=== PATIENT | female | born 1965 | race Caucasian/White ===

== ENCOUNTER 2016-03-06 13:51 | Emergency (ER) | payer MEDICAID, OTHER ==
[2016-03-06 14:49] LABS: Hematocrit 38.7 % (37.0-47.0); Mean Cell Volume 81.1 fl (78-100); Mean Corpuscular Hemoglobin 27.3 pg (27-31); Mean Corpuscular Hgb Conc 33.6 g/dl (32-36); Mean Platelet Volume 10.1 fl (6.0-9.5); Neutrophil # 11.4 K/mm3 (1.3-6.0); Neutrophil % 81.5 % (42-75.0); Platelet Count 320 K/mm3 (150-450); Red Blood Count 4.77 M/mm3 (4.2-5.4); Red Cell Distribution Width 12.6 % (11.5-14.0)
[2016-03-06 14:57] LABS: Anion Gap 15.2 mmol/L (6.8-13.8); Calcium * 9.4 mg/dL (7.9-10.9); Carbon Dioxide 26.7 mmol/L (24-32.6); Estimated Creat Clear 107.3; Potassium 3.9 mmol/L (3.4-4.6)
[2016-03-06] MEDS ORDERED: METHYLPREDNISOLONE SOD SUCC/PF 125 MG/2 ML VIAL IM ONE (17:25)
[2016-03-06] MEDS ORDERED: ALBUTEROL SULFATE 2.5 MG/0.5 ML VIAL.NEB IH ONE ×2 (17:25→17:33)
[2016-03-06] MEDS ORDERED: METHYLPREDNISOLONE SOD SUCC/PF 125 MG/2 ML VIAL ONE (17:33)
[2016-03-06] MEDS ORDERED: NORMAL SALINE 1,000 ML IV ONE (18:06)
--- NOTE | 2016-03-06 18:10 | ERNOTE ---
Medical Problem HPI - Narrative Date of Service: 03/06/16 - General Chief Complaint: Flu Symptoms Time Seen by Provider: 03/06/16 17:12 Source: patient Exam Limitations: no limitations - Immun/Allergies/Home Medications Immunizations: IMMUNIZATION HX Immunizations Up to Date Yes History of Influenza Vaccine No Hx Pneumococcal Vaccination No Allergies/Adverse Reactions: Allergies erythromycin lactobionate [From Erythrocin] Allergy (Verified 03/06/16 14:17) swelling Tetanus Vaccines & Toxoid [Tetanus] Allergy (Verified 03/06/16 14:17) fever swollen arm azithromycin [From Zithromax Z-Yair] Adverse Reaction (Mild, Verified 03/06/16 14 :17) Home Medications: HOME MEDICATIONS Albuterol Sulfate [Ventolin Hfa] 2 puff IH Q4H PRN #1 inhaler 12/16/14 [Last Taken Unknown] Albuterol Sulfate [Proventil Hfa] 6.7 gm IH Q4H PRN #1 hfa.aer.ad 05/14/15 [ Last Taken Unknown] Albuterol Sulfate [Ventolin Hfa] 2 puff IH Q4H PRN #1 inhaler 03/06/16 [Last Taken Unknown] Doxycycline Monohydrate 100 mg PO BID #20 tablet 03/06/16 [Last Taken Unknown] predniSONE [Prednisone] 3 tab PO DAILY #9 tab 03/06/16 [Last Taken Unknown] - History of Present History Narrative: Pt. comes in with c/o L side throat and ear pain with swelling for four days. Pt. denies any CP, NVD, diarrhea, palpitations or edema. Pt. does state that she has had fever, cough, sinus congestion, rhinorrhea, pain with swallowing, and increased SOB recently. Pt. states that she has not had her inhaler the past three days as her granddaughter lost it but she feels that she could use it if she had it. Review of Systems - Review of Systems Constitutional: Present: fever, chills, fatigue, malaise. Absent: recent illness, weakness EYE: Present: no symptoms reported ENT: Present: nose congestion, nasal drainage, sore throat, throat swelling. Absent: ear pain, nose pain Respiratory: Present: shortness of breath, cough, wheezing Cardiology: Present: no symptoms reported. Absent: chest pain, palpitations, edema Gastrointestinal/Abdominal: Present: no symptoms reported. Absent: nausea, vomiting, diarrhea, abdominal pain Genitourinary: Present: no symptoms reported Musculoskeletal: Present: no symptoms reported. Absent: back pain, joint pain Skin: Present: no symptoms reported. Absent: rash, change in color Neurological: Present: no symptoms reported. Absent: headache, dizziness/light- headedness, numbness, tingling All Other Systems: All systems neg except as marked - Patient's Past Medical History Patient History - Medical: No pertinent hx Patient History - Cardiac/Respiratory: Asthma Patient History - Cancer: No Hx of Cancer Patient History - Surgical Procedures: Tubal Ligation - Social History Living Situations: home Smoking Status: Current some day smoker Have you smoked in the past 12 months: Yes Drug Use: none Physical Exam - Physical Exam General Appearance: Present: wd/wn, alert, no apparent distress Eye Exam: Normal inspection: bilateral, PERRL: bilateral, EOMI: bilateral Ears, Nose, Throat: Present: abnormal TM (L) - erythema, pharyngeal erythema, pharyngeal swelling, tonsillar exudate. Absent: abnormal TM (R) Neck: Present: full range of motion, lymphadenopathy (L) - pre and post auricular, submandibular and ant cervical Respiratory: Present: no respiratory distress, no accessory muscle use, chest nontender, wheezing - BUL Cardiovascular/Chest: Present: regular rate, rhythm, no murmur, normal peripheral pulses Gastrointestinal/Abdominal: Present: normal bowel sounds, nontender, nondistended, soft, no organomegaly Back Exam: Present: normal inspection, normal range of motion, no CVA tenderness , no vertebral tenderness Extremity Exam: Present: normal inspection, non-tender, no edema, normal range of motion Neurological Exam: Present: alert, oriented, normal mood/affect, no motor/ sensory deficits, 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 blood pressure rebounding with IV fluids and pt. does not look septic at this time. Discussed case with Dr Contreras and she agrees that pt. should be ok for discharge home with quick follow up. - Results and Orders Patient's Lab Results:: I have reviewed the patient's lab results. - Vital Signs Patient's Vital Signs:: I have reviewed the patient's vital signs. Vital Signs: Vital Signs 03/06/16 03/06/16 03/06/16 14:12 16:46 17:38 Temperature 38.8 C H Pulse Rate 129 H 134 H Respiratory 16 16 Rate Blood Pressure 141/80 134/62 O2 Sat by Pulse 97 95 Oximetry 03/06/16 17:51 Temperature Pulse Rate 133 H Respiratory 15 Rate Blood Pressure 88/71 O2 Sat by Pulse 100 Oximetry - X-Ray X-Ray #1 X-Ray: chest Interpretation: Interp. by hi X-ray Comments: acute bronchitis - Progress/Reassessment Chief Complaint: Flu Symptoms Departure - Departure Clinical Impression: Bronchitis, Tonsillitis with exudate Pharyngitis Qualifiers: Pharyngitis/tonsillitis etiology: unspecified etiology Qualified Code(s): J02.9 - Acute pharyngitis, unspecified Disposition: Home self-care Condition: Fair Instructions: Pharyngitis, [id number], Acute Bronchitis, [id number] Additional Instructions: Please follow up with primary provider in 1-2 days. Referrals: Ysabel Rodriguez FNP [Primary Care Provider] - Prescriptions: Albuterol Sulfate [Ventolin Hfa] 2 puff IH Q4H PRN #1 inhaler PRN Reason: Shortness Of Breath Doxycycline Monohydrate 100 mg PO BID #20 tablet predniSONE [Prednisone] 3 tab PO DAILY #9 tab
[2016-03-06 18:25] LABS: Troponin I Less than 0.017 ng/ml (0.00-0.10)
[2016-03-06 18:29] LABS: BNP * 150 pg/mL (5-150)
[2016-03-06 19:18] VITALS: BP 115/59
[2016-03-06] MEDS ORDERED: LIDOCAINE HCL 20 ML UDC MM ONE (19:42)
== END 2016-03-06 19:45 | disposition home or self-care (01) ==
LOC: ER 13:51
DX: J40 Bronchitis, not specified as acute or chronic (principal); J03.90 Acute tonsillitis, unspecified; F17.210 Nicotine dependence, cigarettes, uncomplicated

== ENCOUNTER 2016-08-16 23:32 | Emergency (ER) | payer OTHER ==
[2016-08-17] MEDS ORDERED: hydrOXYzine PAMOATE 25 MG CAPSULE PO ONE (00:34)
[2016-08-17] MEDS ORDERED: hydrOXYzine PAMOATE 25 MG CAPSULE ONE (00:35)
[2016-08-17] MEDS ORDERED: CLINDAMYCIN HCL 150 MG CAPSULE PO ONE (00:35)
[2016-08-17] MEDS ORDERED: CLINDAMYCIN HCL 150 MG CAPSULE ONE (00:36)
--- NOTE | 2016-08-17 00:52 | ERNOTE ---
Integumentary HPI - General Presenting Symptoms: rash Time Seen by Provider: 08/17/16 00:21 Source: patient Exam Limitations: no limitations - Immun/Allergies/Home Medications Immunizations: IMMUNIZATION HX Immunizations Up to Date Yes History of Influenza Vaccine No Hx Pneumococcal Vaccination No Allergies/Adverse Reactions: Allergies Allergy/AdvReac Type Severity Reaction Status Date / Time erythromycin lactobionate Allergy Verified 08/16/16 23:55 [From Erythrocin] Tetanus Vaccines and Toxoid Allergy Verified 08/16/16 23:55 [Tetanus] Home Medications: HOME MEDICATIONS Fexofenadine HCl 180 mg PO DAILY 08/16/16 [Last Taken Unknown] Clindamycin HCl [Cleocin HCl] 300 mg PO QID #40 capsule 08/17/16 [Last Taken Unknown] Ivermectin [Stromectol] 21 mg PO ONCE #14 tablet 08/17/16 [Last Taken Unknown] hydrOXYzine PAMOATE [Vistaril] 1 - 2 cap PO Q6H PRN #30 cap 08/17/16 [Last Taken Unknown] - History of Present Illness Narrative: Patient is here for a rash that started about an hour prior to coming here. For few days she has been dealing with a few boils in her left arm pit, one started draining and as she was inspecting another one she started to notice a rash on both her arms, leg and neck. The rash looked like hives at first and has been itching, has improved a little on the way here. She denies using anything new recently, no new medications, soaps, lotions, or detergents, no unusual foods. She denies any other symptoms consistent with an allergic reaction. When asked about it she admits that they have had a lice problem at her house for a while. She has used multiple over the counter medications, has treated herself and the grandchildren but still has severe itching especially in her posterior scalp. Location: Reports: scalp, torso, upper extremity, lower extremity Quality: Reports: itching Exposure: Denies: no cause identified, insect bite/spider, bee/wasp sting, poison nicole/oak, medications-specify, foods- specify Modifying Factors - (Improves): Reports: nothing Modifying Factors - (Worsens): Reports: nothing Prior Treatment: Denies: recently seen, currently on antibiotics Review of Systems - Review of Systems Constitutional: Absent: recent illness, fever ENT: Absent: ear pain, nose congestion, sore throat, throat swelling Respiratory: Absent: shortness of breath, cough Cardiology: Absent: chest pain Gastrointestinal/Abdominal: Absent: nausea, vomiting, diarrhea, abdominal pain Genitourinary: Present: no symptoms reported Skin: Present: See HPI, rash Neurological: Absent: headache - Patient's Past Medical History Patient History - Medical: Anxiety, Depression Patient History - Cardiac/Respiratory: No pertinent hx Patient History - Cancer: No Hx of Cancer Patient History - Surgical Procedures: Tubal Ligation Patient History - Other: None - Social History Living Situations: home Psych History: Hx of Depression Smoking Status: Current every day smoker Drug Use: none - Immunizations Immunizations Up to Date: Yes Hx Pneumococcal Vaccination: No History of Influenza Vaccine: No Physical Exam - Physical Exam General Appearance: Present: wd/wn, alert, no apparent distress, obese Eye Exam: Normal inspection: bilateral Ears, Nose, Throat: Present: normal pharynx Neck: Present: other Respiratory: Present: no respiratory distress, normal breath sounds, no accessory muscle use, lungs clear Cardiovascular/Chest: Present: regular rate, rhythm, no murmur Extremity Exam: Present: other - left axilla three areas of induration about 0.5cm, one open and draining, no definite fluctuance in the other two Neurological Exam: Present: alert, oriented, normal mood/affect Skin Exam: Present: normal color, warm/dry, other - few lice in hair on posterior scalp, skin indurated and scaling (reaction to scratching?), om arms and legs: macularpapular rash, non confluent ED Progress - Vital Signs Patient's Vital Signs:: I have reviewed the patient's vital signs. Vital Signs: Vital Signs 08/16/16 23:51 Temperature 37.1 C Pulse Rate 86 Respiratory 20 Rate Blood Pressure 135/76 O2 Sat by Pulse 98 Oximetry - Progress/Reassessment Chief Complaint: Rash Departure Clinical Impression: Lice infested hair, Boil, axilla, Rash and nonspecific skin eruption - Departure Disposition: Home self-care Condition: Good Instructions: Lice, Adult, Cellulitis, Adult, [id number], Rash, [id number] Additional Instructions: call your doctor for follow up, if your symptoms don't clear up you might need to see a skin doctor Referrals: Candor,Ysabel, [employer] [[facility]] - Prescriptions: Clindamycin HCl [Cleocin HCl] 300 mg PO QID #40 capsule Ivermectin [Stromectol] 21 mg PO ONCE #14 tablet hydrOXYzine PAMOATE [Vistaril] 1 - 2 cap PO Q6H PRN #30 cap PRN Reason: Itching
[2016-08-17 04:06] VITALS: BP 132/82
== END 2016-08-17 00:50 | disposition home or self-care (01) ==
LOC: ER 23:32
DX: B85.4 Mixed pediculosis and phthiriasis (principal); L02.422 Furuncle of left axilla

== ENCOUNTER 2016-12-09 16:13 | Emergency (ER) | payer OTHER ==
[2016-12-09] MEDS ORDERED: ALBUTEROL SULFATE/IPRATROPIUM 3 ML NEBU IH ONE ×2 (16:30→16:43)
--- NOTE | 2016-12-09 16:44 | ERNOTE ---
Date of Service: 12/09/16 Time Seen by Provider: 12/09/16 16:25 Stated Complaint: FEVER, CONGESTION, SOB Presenting Symptoms:: cough, runny nose, fever Source: patient Exam Limitations: no limitations Immunizations: IMMUNIZATION HX Immunizations Up to Date Yes History of Influenza Vaccine No Hx Pneumococcal Vaccination No Allergies/Adverse Reactions: Allergies erythromycin lactobionate [From Erythrocin] Allergy (Verified 12/09/16 16:21) swelling Tetanus Vaccines and Toxoid [Tetanus] Allergy (Verified 12/09/16 16:21) fever swollen arm Home Medications: HOME MEDICATIONS Albuterol Sulfate [Ventolin Hfa] 2 puff IH QID PRN #1 hfa.aer.ad 12/09/16 [Last Taken Unknown] Albuterol Sulfate/Ipratropium [Duoneb 2.5-0.5MG/3ML Soln] 3 ml IH QID #150 vial 12/09/16 [Last Taken Unknown] Doxycycline Monohydrate 100 mg PO BID #20 tablet 12/09/16 [Last Taken Unknown] predniSONE [Prednisone] 3 tab PO DAILY #9 tab 12/09/16 [Last Taken Unknown] - History of Present Ilness Narrative: Pt. comes in with c/o cough, SOB, CP, fever, sinus pain and congestion and ear pain. Pt. denies any NVD, rhinorrhea or sputum. Pt. denies any alleviating or aggravating factors despite taking her neb treatments. Pt. has a hx of asthma and takes nebulizers and they usually work for her SOB but have not recently. Review of Systems - Review of Systems Constitutional: Present: no symptoms reported. Absent: recent illness, fever, chills, weakness, fatigue, malaise EYE: Present: no symptoms reported ENT: Present: ear pain, nose congestion, nasal drainage, sore throat Respiratory: Present: shortness of breath, cough. Absent: orthopnea, wheezing, stridor Cardiology: Present: chest pain. Absent: palpitations, edema Gastrointestinal/Abdominal: Present: no symptoms reported. Absent: nausea, vomiting, diarrhea Genitourinary: Present: no symptoms reported Musculoskeletal: Present: no symptoms reported. Absent: back pain, joint pain Skin: Present: no symptoms reported Neurological: Present: no symptoms reported. Absent: headache, dizziness/light- headedness, numbness, tingling All Other Systems: All systems neg except as marked - Patient's Past Medical History Patient History - Medical: Anxiety, Depression Patient History - Cardiac/Respiratory: No pertinent hx Patient History - Cancer: No Hx of Cancer Patient History - Surgical Procedures: Tubal Ligation Patient History - Other: None LMP (females 10-50): Menopausal - Social History Living Situations: home Abuse History: No History of abuse Psych History: Hx of Anxiety, Hx of Depression Smoking Status: Current every day smoker Have you smoked in the past 12 months: Yes Alcohol Use: none Drug Use: none - Immunizations Immunizations Up to Date: Yes Hx Pneumococcal Vaccination: No History of Influenza Vaccine: No Physical Exam - Physical Exam General Appearance: Present: wd/wn, alert, no apparent distress Head Exam: Present: normal inspection, no evidence of injury Eye Exam: Normal inspection: bilateral Ears, Nose, Throat: Present: abnormal TM (L) - erythema, nasal congestion, sinus pain/drainage, pharyngeal erythema. Absent: pharyngeal swelling, tonsillar exudate, tonsillar swelling Neck: Present: normal inspection, nontender, supple, full range of motion. Absent: lymphadenopathy (R), lymphadenopathy (L) Respiratory: Present: no respiratory distress, chest tenderness - B intercostal anterior multiple, decreased breath sounds, wheezing - throughtout exp Cardiovascular/Chest: Present: regular rate, rhythm, no murmur, normal peripheral pulses Gastrointestinal/Abdominal: Present: normal bowel sounds, nontender, nondistended, soft, no organomegaly Back Exam: Present: normal inspection Extremity Exam: Present: normal inspection Neurological Exam: Present: alert, oriented, normal mood/affect, no motor/ sensory deficits Skin Exam: Present: normal color, warm/dry. Absent: pallor, skin rash ED Progress - Date and Time Seen: Date and Time: 12/09/16 17:16 Feel that pt. atelasctasis is early pneumonia given pt. clinical picture and elevated WBC so will start pt. on abx and steroids nad have her follow up with her PCP early next week. - Results and Orders Patient's Lab Results:: I have reviewed the patient's lab results. Results and Orders: Abnormal Lab Results 12/09/16 12/09/16 Range/Units 16:39 16:39 WBC 17.6 H (4.0-10.5) K/mm3 MPV 10.2 H (6.0-9.5) fl Immature Gran % (Auto) 0.60 H (0.001-0.429) % Immature Gran # (Auto) 0.10 H (0.000-0.0310) K/mm3 Neutrophils % 82.4 H (42-75.0) % Lymphocytes % 10.3 L (20-51) % Neutrophils # 14.5 H (1.3-6.0) K/mm3 Anion Gap 15.5 H (6.8-13.8) mmol/L Random Glucose 137 H (70-110) mg/dL Abnormal Lab Results 12/09/16 12/09/16 Range/Units 16:39 16:39 WBC 17.6 H (4.0-10.5) K/mm3 MPV 10.2 H (6.0-9.5) fl Immature Gran % (Auto) 0.60 H (0.001-0.429) % Immature Gran # (Auto) 0.10 H (0.000-0.0310) K/mm3 Neutrophils % 82.4 H (42-75.0) % Lymphocytes % 10.3 L (20-51) % Neutrophils # 14.5 H (1.3-6.0) K/mm3 Anion Gap 15.5 H (6.8-13.8) mmol/L Random Glucose 137 H (70-110) mg/dL - Vital Signs Patient's Vital Signs:: I have reviewed the patient's vital signs. Vital Signs: Vital Signs 12/09/16 16:18 Temperature 36.4 C L Pulse Rate 124 H Respiratory 16 Rate Blood Pressure 129/76 O2 Sat by Pulse 97 Oximetry - EKG EKG: other - sinus tach 101 EKG read: Reviewed by me EKG Comments: no acute interp by Dr Teixeira - X-Ray X-Ray #1 X-Ray: chest Interpretation: Reviewed by me X-ray Comments: L basilar atelactasi no consolidations. - Progress/Reassessment Chief Complaint: Upper Respiratory Symptoms Departure Clinical Impression: Pneumonia Qualifiers: Pneumonia type: due to unspecified organism Laterality: left Lung location: lower lobe of lung Qualified Code(s): J18.1 - Lobar pneumonia, unspecified organism - Departure Disposition: Home self-care Condition: Good Instructions: Community-Acquired Pneumonia, Adult, [id number] Additional Instructions: Please follow up with provider of your choice next week to make sure that pneumonia is resolved and please start duoneb every 6 hours and may take inhaler in between. Prescriptions: Albuterol Sulfate [Ventolin Hfa] 2 puff IH QID PRN #1 hfa.aer.ad PRN Reason: Wheezing Albuterol Sulfate/Ipratropium [Duoneb 2.5-0.5MG/3ML Soln] 3 ml IH QID #150 vial Doxycycline Monohydrate 100 mg PO BID #20 tablet predniSONE [Prednisone] 3 tab PO DAILY #9 tab
[2016-12-09 16:50] LABS: Hematocrit 37.9 % (37.0-47.0); Mean Corpuscular Hemoglobin 28.1 pg (27-31); Mean Corpuscular Hgb Conc 34.3 g/dl (32-36); Mean Platelet Volume 10.2 fl (6.0-9.5); Neutrophil # 14.5 K/mm3 (1.3-6.0); Neutrophil % 82.4 % (42-75.0); Platelet Count 340 K/mm3 (150-450); Red Blood Count 4.62 M/mm3 (4.2-5.4); Red Cell Distribution Width 13.1 % (11.5-14.0); White Blood Count 17.6 K/mm3 (4.0-10.5)
[2016-12-09 17:08] LABS: ALT 27 U/L (19-67); AST 17 U/L (0-48); Albumin * 3.7 gm/dl (3.4-5.0); Alkaline Phosphatase * 145 U/L (50-170); Anion Gap 15.5 mmol/L (6.8-13.8); Bilirubin, Total 0.6 mg/dL (0.0-1.1); Blood Urea Nitrogen 10 mg/dL (3-23); Ca. Corrected For Albumin 8.9 mg/dL (8.4-10.2); Carbon Dioxide 26.1 mmol/L (24-32.6); Chloride 100 mmol/L (97-106); Glucose * 137 mg/dL (70-110); Potassium 3.6 mmol/L (3.4-4.6); Sodium 138 mmol/L (132-142); Total Protein 8.2 gm/dL (6.2-8.2); Troponin I Less than 0.017 ng/ml (0.00-0.10)
[2016-12-09] MEDS ORDERED: METHYLPREDNISOLONE ACETATE 80 MG/ML VIAL IM ONE (17:15)
[2016-12-09] MEDS ORDERED: DOXYCYCLINE HYCLATE 100 MG TABLET PO ONE (17:15)
[2016-12-09] MEDS ORDERED: DOXYCYCLINE HYCLATE 100 MG TABLET ONE (17:26)
[2016-12-09] MEDS ORDERED: METHYLPREDNISOLONE ACETATE 80 MG/ML VIAL ONE (17:26)
[2016-12-09 17:39] VITALS: BP 132/74
== END 2016-12-09 17:35 | disposition home or self-care (01) ==
LOC: ER 16:13
DX: J18.1 Lobar pneumonia, unspecified organism (principal); F17.200 Nicotine dependence, unspecified, uncomplicated